=== PATIENT | female | born 1980 | race Caucasian/White ===

== ENCOUNTER 2016-08-05 09:40 | Inpatient (IN) | payer OTHER ==
[~2016-08-05] VITALS: Ht 154.9 cm; Wt 79.5 kg
[2016-08-05] MEDS: LACTATED RINGER'S 1,000 ML IV SCH ×3 (11:00→17:00)
[2016-08-05 12:11] LABS: ADD SCAN DIFF NO
[2016-08-05 12:15] LABS: BASOPHILS % 0.3 % (0.0-2.0); EOSINOPHILS # 0.2 10^3/ul (0.0-0.5); EOSINOPHILS % 1.8 % (0.0-7.0); HEMATOCRIT 33.6 % (37.0-47.0); HEMOGLOBIN 11.7 g/dl (12.0-16.0); LYMPHOCYTES # 2.1 10^3/ul (0.8-2.9); LYMPHOCYTES % 18.5 % (15.0-51.0); MEAN CORPUSCULAR HEMOGLOBIN 29.5 pg (29.0-33.0); MEAN CORPUSCULAR HGB CONC 34.8 g/dl (32.0-37.0); MEAN CORPUSCULAR VOLUME 84.6 fl (82.0-101.0); MEAN PLATELET VOLUME 12.7 fl (7.4-10.4); MONOCYTE # 0.8 10^3/ul (0.3-0.9); MONOCYTES % 7.4 % (0.0-11.0); NEUTROPHIL # 8.1 10^3/ul (1.6-7.5); NEUTROPHILS % 71.6 % (39.0-77.0); PLATELET COUNT 172 10^3/UL (140-415); RED BLOOD COUNT 3.97 10^6/ul (4.20-5.40); RED CELL DISTRIBUTION WIDTH 13.2 % (11.5-14.5); WHITE BLOOD COUNT 11.3 10^3/ul (4.8-10.8)
[2016-08-05 12:21] LABS: INR 1.07; PARTIAL THROMBOPLASTIN TIME 26.4 Sec (25.0-35.0); PROTIME 13.9 Sec (12.2-14.2); PT RATIO 1.1
[2016-08-05] MEDS ORDERED: CEFAZOLIN 2 GM/50 ML (PMX) 50 ML IV SCH (12:30)
[2016-08-05] MEDS ORDERED: CARBOPROST 250 MCG INJ IM PRN (12:30)
[2016-08-05] MEDS ORDERED: OXYTOCIN 30 UNITS/LR 500 ML IV PRN (12:30)
[2016-08-05] MEDS ORDERED: MISOPROSTOL 200 MCG TAB PR PRN (12:30)
[2016-08-05] MEDS ORDERED: METHYLERGONOVINE 0.2 MG INJ IM PRN (12:30)
[2016-08-05] MEDS ORDERED: OXYTOCIN 30 UNITS/LR 500 ML IV SCH (12:30)
[2016-08-05] MEDS ORDERED: URSO300C21 PO (12:37)
[2016-08-05 12:38] VITALS: Ht 154.9 cm; Wt 79.5 kg
[2016-08-05] MEDS ORDERED: PRENAT PO (12:38)
[2016-08-05 12:39] VITALS: BP 109/62; PULSE 80; RESP 18
--- NOTE | 2016-08-05 13:33 | RADRPT ---
PROCEDURE: OB ultrasound for biophysical profile CLINICAL INDICATION: Contractions TECHNIQUE: Multiple sonographic images of the pelvis were obtained. Transabdominal view of the gr avid uterus are available for review. The images were reviewed on a PACS workstation. COMPARISON: None FINDINGS: breathing movement = 2/2 tone = 2/2 motion = 2/2 MARCIA = 2/2 MARCIA = 9.9 cm Single live intrauterine with cardiac activity. heart rate equals 126 beats p er minute. Presentation is cephalic. The placenta is posterior. IMPRESSION: 1. Single viable intrauterine gestation. 2. Biophysical profile = 8/8. 3. MARCIA = 9.9 cm. RPTAT: KK .Leonidas Leyva MD, Date Time Electronically viewed and signed by .Leonidas Leyva MD, MD on 08/05/2016 13:32 .B/
--- NOTE | 2016-08-05 13:35 | RADRPT ---
PROCEDURE: US OB - Limited weight. CLINICAL INDICATION: Contractions TECHNIQUE: Multiple sonographic images of the pelvis were obtained. Transabdominal imaging only w as performed. The images were reviewed on a PACS workstation. COMPARISON: No prior studies are available for comparison. FINDINGS: There is a single viable intrauterine gestation. Cardiac activity is present with 131 beats per min [place]. There is a cephalic presentation. Measurements were made in order to determine age. The results are as follows: BPD = 8.37 cm HC = 32.74 cm AC = 31.18 cm FL = 6.88 .cm Estimated gestational age of approximately 35 weeks 2 days +/ - 2 weeks 3 days The estimated date of delivery is 09/07/2016 by ultrasound evaluation. The EFW = 2627 g +/- 394 g (30%). The placenta is posterior. IMPRESSION: 1. Single viable intrauterine gestation of approximately 35 weeks 2 days with estimated date of [place] b[place] of 09/07/2016 by ultrasound evaluation.. 2. The estimated weight is 2627 g (30%) . RPTAT: KK .Leonidas Leyva MD, MD Date Time Electronically viewed and signed by .Leonidas Leyva MD, MD on 08/05/2016 13:34 .B/
[2016-08-05 13:47] LABS: ADD UMIC NO; UR ASCORBIC ACID NEGATIVE (NEGATIVE); UR BILIRUBIN (Dip) NEGATIVE (NEGATIVE); UR BLOOD (Dip) NEGATIVE (NEGATIVE); UR CLARITY CLEAR (CLEAR); UR COLOR STRAW (YELLOW); UR GLUCOSE (Dip) NEGATIVE (NEGATIVE); UR KETONES (Dip) TRACE mg/dL (NEGATIVE); UR LEUKOCYTE ESTERASE (Dip) NEGATIVE Leu/ul (NEGATIVE); UR NITRITE (Dip) NEGATIVE (NEGATIVE); UR SPECIFIC GRAVITY (Dip) 1.005 (1.003-1.030); UR TOTAL PROTEIN (Dip) NEGATIVE (NEGATIVE); UR UROBILINOGEN (Dip) NEGATIVE (NEGATIVE)
[2016-08-05 14:02] LABS: ALBUMIN 3.7 g/dl (3.3-4.9); ALBUMIN/GLOBULIN RATIO 1.32; BILIRUBIN,INDIRECT 0.4 mg/dl (0-1.1); BILIRUBIN,TOTAL 0.4 mg/dl (0.2-1.3); CALCIUM 8.9 mg/dl (8.4-10.2); CREATININE 0.53 mg/dl (0.44-1.00); POTASSIUM 3.8 mmol/L (3.5-5.1); TOTAL PROTEIN 6.5 g/dl (6.1-8.1)
[2016-08-05] MEDS ORDERED: TERBUTALINE 1 ML ONE (14:28)
[2016-08-05] MEDS ORDERED: TERBUTALINE 1 MG/ML INJ SC ONE ×2 (15:00→16:30)
[2016-08-05] MEDS ORDERED: ACETAMINOPHEN 1000MG/100ML IV 100 ML IVPB ONE (18:30)
--- NOTE | 2016-08-05 22:10 | PN ---
Triage Information Date/Time Aug 05, 2016 at 09:40 Weeks of Gestation Patient is 4 para 2 at 36 weeks of gestation with history of prior C- section 2 Patient has been treated for cholestasis of on Actigall She was sent from [facility] for possible and bilateral tubal ligation today Patient reports contractions, positive movement, no vaginal bleeding, no leaking fluid : 4 Para: 2 Diabetes: none Hypertention: none Additional information Patient with cholestasis of currently on Actigall Objective Vital Signs Date Time Temp Pulse Resp B/P Pulse Ox O2 Delivery O2 Flow Rate FiO2 08/05/16 12:39 98.0 80 18 109/62 98 Room Air Heart Rate Comments Reactive Contractions: 6-10 Minutes Apart Exam Cervix closed per nurse Results/Medications Result Diagram: 08/05/16 1100 08/05/16 1320 Results 24 hrs Laboratory Tests Test 08/05/16 11:00 08/05/16 13:10 08/05/16 13:20 08/05/16 18:41 White Blood Count 11.3 H Red Blood Count 3.97 L Hemoglobin 11.7 L Hematocrit 33.6 L Mean Corpuscular Volume 84.6 Mean Corpuscular Hemoglobin 29.5 Mean Corpuscular Hemoglobin Concent 34.8 Red Cell Distribution Width 13.2 Platelet Count 172 Mean Platelet Volume 12.7 H Neutrophils % 71.6 Lymphocytes % 18.5 Monocytes % 7.4 Eosinophils % 1.8 Basophils % 0.3 Nucleated Red Blood Cells % 0.0 Neutrophils # 8.1 H Lymphocytes # 2.1 Monocytes # 0.8 Eosinophils # 0.2 Basophils # 0.0 Nucleated Red Blood Cells # 0.0 Prothrombin Time 13.9 Prothrombin Time Ratio 1.1 INR International Normalized Ratio 1.07 Activated Partial Thromboplast Time 26.4 Glucose Level 72 69 L Rapid Plasma Reagin NONREACTIVE Hepatitis B Surface Antigen NEGATIVE Urine Color STRAW Urine Clarity CLEAR Urine pH 7.0 Urine Specific [place] 1.005 Urine Ketones TRACE A Urine Nitrite NEGATIVE Urine Bilirubin NEGATIVE Urine Urobilinogen NEGATIVE Urine Leukocyte Esterase NEGATIVE Urine Hemoglobin NEGATIVE Urine Glucose NEGATIVE Urine Total Protein NEGATIVE Sodium Level 136 Potassium Level 3.8 Chloride Level 107 Carbon Dioxide Level 23 Anion Gap 10 Blood Urea Nitrogen 4 L Creatinine 0.53 Calcium Level 8.9 Total Bilirubin 0.4 Direct Bilirubin 0.00 Indirect Bilirubin 0.4 Aspartate Amino Transf (AST/SGOT) 24 Alanine Aminotransferase (ALT/SGPT) 24 Alkaline Phosphatase 138 H Total Protein 6.5 Albumin 3.7 Globulin 2.80 Albumin/Globulin Ratio 1.32 Bedside Glucose 78 Medications Current Medications Cefazolin Sodium/ Dextrose 50 ml @ 100 mls/hr ONCE IV ; Start 08/05/16 at 12:30 Oxytocin/Lactated Ringer's 500 ml @ 125 mls/hr ONCE IV ; Start 08/05/16 at 12: 30 Oxytocin/Lactated Ringer's 500 ml @ 0 mls/hr ONCE PRN IV For Hemorrhage Management; Start 08/05/16 at 12:30 Methylergonovine Maleate (Methergine) 0.2 mg ONCE PRN IM VAGINAL BLEEDING; Start 08/05/16 at 12:30 Carboprost Tromethamine (Hemabate) 250 mcg ONCE PRN IM VAGINAL BLEEDING; Start 08/05/16 at 12:30 Misoprostol 1000 mcg 1,000 mcg ONCE PRN OK VAGINAL BLEEDING; Start 08/05/16 at 12:30 Lactated Ringer's (Lr) 1,000 ml @ 125 mls/hr Q8H IV Last administered on t 17:00; Admin Dose 125 MLS/HR; Start 08/05/16 at 12:56 Imaging Results PROCEDURE: OB ultrasound for biophysical profile CLINICAL INDICATION: Contractions TECHNIQUE: Multiple sonographic images of the pelvis were obtained. Transabdominal view of the gravid uterus are available for review. The images were reviewed on a PACS workstation. COMPARISON: None FINDINGS: breathing movement = 2/2 tone = 2/2 motion = 2/2 MARCIA = 2/2 MARCIA = 9.9 cm Single live intrauterine with cardiac activity. heart rate equals 126 beats per minute. Presentation is cephalic. The placenta is posterior. IMPRESSION: 1. Single viable intrauterine gestation. 2. Biophysical profile = 8/8. 3. MARCIA = 9.9 cm. RPTAT: KK .Leonidas Leyva MD, MD Date Time Electronically viewed and signed by .Leonidas Leyva MD, MD on 2016 13:32 .B/ CC: PAOLA OSWALD MD PROCEDURE: US OB - Limited weight. CLINICAL INDICATION: Contractions TECHNIQUE: Multiple sonographic images of the pelvis were obtained. Transabdominal imaging only was performed. The images were reviewed on a PACS workstation. COMPARISON: No prior studies are available for comparison. FINDINGS: There is a single viable intrauterine gestation. Cardiac activity is present with 131 beats per minute. There is a cephalic presentation. Measurements were made in order to determine age. The results are as follows: BPD = 8.37 cm HC = 32.74 cm AC = 31.18 cm FL = 6.88 .cm Estimated gestational age of approximately 35 weeks 2 days +/ - 2 weeks 3 days The estimated date of delivery is 09/07/2016 by ultrasound evaluation. The EFW = 2627 g +/- 394 g (30%). The placenta is posterior. IMPRESSION: 1. Single viable intrauterine gestation of approximately 35 weeks 2 days with estimated date of delivery of 09/07/2016 by ultrasound evaluation.. 2. The estimated weight is 2627 g (30%) . RPTAT: KK .Leonidas Leyva MD, MD Date Time Electronically viewed and signed by .Leonidas Leyva MD, MD on 2016 13:34 .B/ CC: PAOLA OSWALD MD Assessment/Plan Patient at 36 weeks of gestation with contractions and cholestasis of After IV fluids and terbutaline patient's contractions have subsided We will admit her for observation overnight Patient was counseled if the contractions return and there are every 3-5 minutes we will proceed with a repeat and BTL If any evidence of non-reassuring heart tracing we will proceed with repeat c/section and BTL Patient was further counseled given the fact that she is only 36 weeks of gestation there is some benefit for waiting until she reaches full term SANTIAGO PEREIRA MD Aug 05, 2016 22:06
[2016-08-06] MEDS: LACTATED RINGER'S 1,000 ML IV SCH (03:36)
[2016-08-06] MEDS ORDERED: ACETAMINOPHEN 1000MG/100ML IV 100 ML IVPB ONE (07:00)
[2016-08-06] MEDS ORDERED: LACTATED RINGER'S 1,000 ML IV ONE (09:42)
[2016-08-06] MEDS ORDERED: CITRIC ACID/SODIUM CITRATE 15 ML CUP PO ONE (10:00)
[2016-08-06] MEDS ORDERED: FAMOTIDINE 20 MG INJ IV ONE (10:00)
[2016-08-06] MEDS ORDERED: METOCLOPRAMIDE 10 MG INJ IV ONE (10:00)
[2016-08-06] MEDS ORDERED: FENTAnyl 50 MCG/ML VIAL ONE (10:36)
[2016-08-06] MEDS ORDERED: morphine SULFATE/PF (10 MG/10 ML) INJ ONE (10:36)
[2016-08-06] MEDS ORDERED: EPHEDrine SULFATE 50 MG/5 ML SYG ONE (10:56)
[2016-08-06] MEDS ORDERED: PHENYLephrine (100 MCG/ML) 5ML SYG ONE (10:56)
--- NOTE | 2016-08-06 10:58 | HP ---
Date/Time of Note Date/Time of Note DATE: 08/06/16 TIME: 10:45 OB - History Hx of Present Free Text/Dictation This is a 36 years old female admitted to [facility] with history of 2 previous planner chief complaint of uterine contraction, patient kept under close observation to rule out labor received hydration and terbutaline however contractions even not to close together but painful scale of 7 according to her, she has a history of suspected cholestasis of which for that she has been taking ursodiol 300 mg 3 times a day, however her most recent bile acids report except one of the values were within normal Estimated Due Date: Sep 02, 2016 : 4 Para: 2 Spontaneous : 1 Care: Good Care Ultrasounds: Normal mid trimester US Obstetrical Complications: Other (Suspected cholestasis of being treated with ursodiol 300 mg 3 times daily) Medical Complications: Other (Cholestasis of ) Past Family/Social History * Past Medical, Surgical, Family and Obstetric Histories reviewed from chart. Rubella: immune RPR/VDRL: Negative GBS Status: Unknown HBsAG: Negative OB Admission Exam Vital Signs Vital Signs Vital Signs Date Time Temp Pulse Resp B/P Pulse Ox O2 Delivery O2 Flow Rate FiO2 08/05/16 12:39 98.0 80 18 109/62 98 Room Air Physical Exam HEENT: WNL Lungs: Clear, Equal Abdomen: WNL Extremities: Normal Reflexes: Normal Station: -2 Membranes: Intact Heart Rate: 130's Accelerations: Accelerations Present Decelerations: No Decelerations Varibility: Moderate Contractions on Admission: >10 Minutes Apart Intensity: Firm Last 72 hourBlood Glucose Bedside Glucose - 72 Hours Test 08/05/16 18:41 Bedside Glucose 78mg/dL (70-220) Last 72 hours Lab Results CBC & BMP 08/05/16 11:00 08/05/16 13:20 Liver Function Test 08/05/16 13:20 Alanine Aminotransferase (ALT/SGPT) 24 Albumin 3.7 Alkaline Phosphatase 138 H Aspartate Amino Transf (AST/SGOT) 24 Direct Bilirubin 0.00 Total Protein 6.5 PAOLA OSWALD MD Aug 06, 2016 10:55
[2016-08-06] MEDS ORDERED: FENTAnyl 50 MCG/ML VIAL IV PRN (11:00)
[2016-08-06] MEDS ORDERED: MEPERIDINE 25 MG INJ IV PRN (11:00)
[2016-08-06] MEDS ORDERED: PROCHLORPERAZINE 10 MG INJ IV PRN ×2 (11:00)
[2016-08-06] MEDS ORDERED: NALOXONE (0.4 MG/ML) INJ IV PRN (11:00)
[2016-08-06] MEDS ORDERED: ZOLPIDEM 5 MG TAB PO PRN (11:00)
[2016-08-06] MEDS ORDERED: ONDANSETRON 4 MG INJ IV PRN ×2 (11:00)
[2016-08-06] MEDS ORDERED: HYDROmorphONE 1 MG/ML SYG IV PRN ×2 (11:00)
[2016-08-06] MEDS ORDERED: KETOROLAC 30 MG INJ IV PRN ×2 (11:00)
[2016-08-06] MEDS ORDERED: DIPHENHYDRAMINE 50 MG INJ IV PRN ×2 (11:00)
[2016-08-06] MEDS ORDERED: HYDROmorphONE (0.2 MG/ML) 10ML SYG IV PRN (11:00)
[2016-08-06] MEDS ORDERED: ONDANSETRON 4 MG INJ ONE (11:10)
[2016-08-06] MEDS ORDERED: OXYTOCIN 30 UNITS/LR 500 ML IV ONE (11:32)
--- NOTE | 2016-08-06 12:25 | OPR ---
DATE OF OPERATION: 08/06/2016 PREOPERATIVE DIAGNOSES: 1. Intrauterine at 36 weeks and 1 day, history of 2 previous sections, complicated with cholestasis of , in labor. 2. Request for voluntary sterilization, bilateral tubal ligation at the time of section. POSTOPERATIVE DIAGNOSES: 1. Intrauterine at 36 weeks and 1 day, history of 2 previous sections, complicated with cholestasis of , in labor. 2. Request for voluntary sterilization, bilateral tubal ligation at the time of section. PROCEDURE PERFORMED: 1. Repeat transverse low cervical section for the 3rd time. 2. Bilateral tubal ligation. SURGEON: Paola Guerrero MD [facility] DIRECTOR: Leda Shahid MD ANESTHESIA: Spinal. ANESTHESIOLOGIST: Korin Leroy MD FINDINGS: Live baby boy, 8 and 8. Baby weighed 2735 grams. DETAILS OF THE PROCEDURE: Under satisfactory spinal anesthesia, the patient was prepped and draped and placed in supine position, tilted to the left. Pfannenstiel incision was made, incision carried through the subcutaneous tissue. Bleeders brought under control with electrocautery. Fascia incis ed to the length of the incision. Rectus muscle divided in midline. Peritoneum exposed, entered th rough a transverse incision. Exploration of abdomen: Gravid uterus, normal-appearing tubes and ova muna, extremely thinned out lower segment of the uterus to the thickness of 1 mm. Bladder flap was developed. Transverse incision was made in the lower segment of the uterus. Amniotic sac ruptured. Clear amniotic fluid noted. Live baby boy was delivered from unengaged vertex. Nasal oropharynge al suction was performed. Baby handed to the team for immediate attention. The patient re ceived 20 units of Pitocin. Placenta delivered manually intact. Uterine cavity cleaned with wet sp onge and drainage established. Placenta sent to pathology. Uterus closed in 2 layers using Monocry l #1 in continuous fashion. Bilateral tubal ligation performed by identifying the ampulla and the fimbria portion of the right f allopian tube, grasped by a Tiro. Suture material used #0 plain catgut was reinforced with the s kathe suture material. The ampulla and fimbria were resected and the cut end of the tube was cauterize d and the specimen submitted for pathology. The same procedure performed for the opposite side. Pe ritoneal cavity irrigated with warm saline. Sponge, needle and instrument reported to be correct. Abdominal peritoneum closed with 2-0 chromic catgut continuously. Rectus muscle approximated with a few interrupted 2-0 chromic catgut. Fascia closed with #1 PDS in a continuous fashion. Subcutaneo us tissue approximated with 2-0 chromic catgut and the skin closed with gwendolyn. Estimated blood lo ss 600 mL. Urine bag contained 200 mL of clear urine. The patient tolerated the procedure well, tr ansferred to recovery room in a good condition. Dictated By: PAOLA PONCE/BARRON Conf#: [id number] DID#: [id number]
[2016-08-06 15:40] VITALS: BP 117/70; PULSE 85; RESP 17
[2016-08-06 15:55] VITALS: BP 127/59; PULSE 92; RESP 19
[2016-08-06] MEDS ORDERED: CARBOPROST 250 MCG INJ IM PRN (16:00)
[2016-08-06] MEDS ORDERED: CEFAZOLIN 1 GM/50 ML (PMX) 50 ML IVPB SCH (16:00)
[2016-08-06] MEDS ORDERED: MISOPROSTOL 200 MCG TAB PR PRN (16:00)
[2016-08-06] MEDS ORDERED: LANOLIN 7 GM TUBE TOP PRN (16:00)
[2016-08-06] MEDS ORDERED: OXYTOCIN 30 UNITS/LR 500 ML IV PRN (16:00)
[2016-08-06] MEDS ORDERED: METHYLERGONOVINE 0.2 MG INJ IM PRN (16:00)
[2016-08-06] MEDS ORDERED: OXYCODONE/ACETAMINOPHEN (5/325) TAB PO PRN (16:00)
[2016-08-06] MEDS ORDERED: ACETAMINOPHEN/CODEINE #3 TAB PO PRN ×2 (16:00)
[2016-08-06 16:25] VITALS: BP 116/62; PULSE 76; RESP 20
[2016-08-06] MEDS: OXYTOCIN 30 UNITS/LR 500 ML IV SCH ×2 (16:45→21:21)
[2016-08-06 16:55] VITALS: BP 127/67; PULSE 78; RESP 20
[2016-08-06 17:55] VITALS: BP 126/62; PULSE 78; RESP 18
[2016-08-06 20:00] VITALS: BP 120/67; PULSE 74; RESP 20
[2016-08-06] MEDS: SENNA/DOCUSATE NA (8.6MG/50MG) TAB PO SCH (21:23)
[2016-08-07] MEDS: OXYTOCIN 30 UNITS/LR 500 ML IV SCH ×7 (02:05→23:52)
[2016-08-07 04:00] VITALS: BP 102/58; PULSE 81; RESP 20
[2016-08-07 07:11] LABS: ADD SCAN DIFF NO
[2016-08-07 07:17] LABS: BASOPHILS % 0.3 % (0.0-2.0); EOSINOPHILS # 0.1 10^3/ul (0.0-0.5); EOSINOPHILS % 0.8 % (0.0-7.0); HEMATOCRIT 29.8 % (37.0-47.0); HEMOGLOBIN 10.2 g/dl (12.0-16.0); LYMPHOCYTES % 13.9 % (15.0-51.0); MEAN CORPUSCULAR HEMOGLOBIN 29.3 pg (29.0-33.0); MEAN CORPUSCULAR HGB CONC 34.2 g/dl (32.0-37.0); MEAN CORPUSCULAR VOLUME 85.6 fl (82.0-101.0); MEAN PLATELET VOLUME 12.5 fl (7.4-10.4); MONOCYTE # 1.3 10^3/ul (0.3-0.9); NEUTROPHIL # 10.9 10^3/ul (1.6-7.5); NEUTROPHILS % 75.5 % (39.0-77.0); PLATELET COUNT 155 10^3/UL (140-415); RED BLOOD COUNT 3.48 10^6/ul (4.20-5.40); RED CELL DISTRIBUTION WIDTH 13.4 % (11.5-14.5); WHITE BLOOD COUNT 14.4 10^3/ul (4.8-10.8)
[2016-08-07 08:00] VITALS: BP 104/68; PULSE 73; RESP 18
[2016-08-07] MEDS: SENNA/DOCUSATE NA (8.6MG/50MG) TAB PO SCH ×2 (08:42→20:53)
[2016-08-07] MEDS: IBUPROFEN 600 MG TAB PO SCH ×2 (11:15→17:58)
--- NOTE | 2016-08-07 15:40 | PN ---
Date/Time of Note Date/Time of Note DATE: 08/07/16 TIME: 15:39 OB Subjective Subjective Subjective Post day 1 Afebrile vital signs abdomen soft incision dry bowel sounds present lochia normal extremities normal ambulation encouraged PAOLA OSWALD MD Aug 07, 2016 15:40
[2016-08-07 17:00] VITALS: BP 112/65; PULSE 86; RESP 18
[2016-08-07 19:50] VITALS: BP 117/74; PULSE 78; RESP 18
[2016-08-08] MEDS: OXYCODONE/ACETAMINOPHEN (5/325) TAB PO PRN ×4 (01:18→19:59)
[2016-08-08 03:41] VITALS: BP 99/71; PULSE 80; RESP 18
[2016-08-08] MEDS: OXYTOCIN 30 UNITS/LR 500 ML IV SCH ×3 (03:50→23:24)
[2016-08-08] MEDS: IBUPROFEN 600 MG TAB PO SCH ×4 (05:41→18:08)
[2016-08-08] MEDS: SENNA/DOCUSATE NA (8.6MG/50MG) TAB PO SCH ×2 (08:27→19:58)
[2016-08-08 09:01] VITALS: BP 104/63; PULSE 72; RESP 14
--- NOTE | 2016-08-08 11:57 | PN ---
Date/Time of Note Date/Time of Note DATE: 08/08/16 TIME: 11:56 OB Subjective Subjective Subjective Post day 2 Afebrile vital signs stable abdomen soft incision good bowel no bowel movement extremities normal enema recommended PAOLA OSWALD MD Aug 08, 2016 11:57
[2016-08-08] MEDS ORDERED: NA PHOSPHATE/BIPHOS 133 ML ENEMA PR ONE (12:00)
[2016-08-08 17:00] VITALS: BP 115/74; PULSE 85; RESP 16
[2016-08-08 17:07] LABS: CHOLIC ACID <0.5 umol/L (< OR = 1.8); DEOXYCHOLIC ACID 0.5 umol/L (< OR = 2.4); TOTAL BILE ACIDS 1.5 umol/L (< OR = 6.8)
[2016-08-08 19:59] VITALS: BP 110/68; PULSE 78; RESP 19
[2016-08-09] MEDS: IBUPROFEN 600 MG TAB PO SCH ×3 (00:15→11:39)
[2016-08-09] MEDS: OXYTOCIN 30 UNITS/LR 500 ML IV SCH ×2 (02:30→06:57)
[2016-08-09 04:07] VITALS: BP 109/68; PULSE 69; RESP 19
[2016-08-09] MEDS: OXYCODONE/ACETAMINOPHEN (5/325) TAB PO PRN (04:07)
[2016-08-09 08:00] VITALS: BP 107/60; PULSE 7; RESP 20
[2016-08-09] MEDS: SENNA/DOCUSATE NA (8.6MG/50MG) TAB PO SCH (08:50)
[2016-08-09] MEDS ORDERED: DIPHTH/TET/ACEL PERTUSS (ADULT) 0.5 ML VIAL IM* ONE (09:00)
--- NOTE | 2016-08-09 12:40 | PD.PPDC ---
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
--- NOTE | 2016-08-09 12:43 | DS ---
Date/Time of Note Date/Time of Note DATE: 08/09/16 TIME: 12:41 Discharge Summary Admission/Discharge Info Admit Date/Time Aug 05, 2016 at 09:40 Discharge Date/Time August 09, 2016 at 1235 Discharge Diagnosis Post repeat date 3 Patient Condition: Good Procedures Repeat Hx of Present Illness 36 weeks 2 days history of 2 previous suspected cholestasis of mild [facility] Hospital Course Satisfactory uneventful Home Meds Reported Medications Multivit/Min/Fol Ac/Iron/Pren* ( S*) 1 Tab Tab, 1 TAB PO DAILY, TAB 08/05/16 Ursodiol* (Actigall*) 300 Mg Cap, 300 MG PO TID, #90 CAP 08/05/16 Follow-up Plan Appointment clinic 4 days to discontinue gwendolyn post instructions for home wound care given Primary Care Provider Not On Staff Doctor Time spent on discharge: < 30 minutes PAOLA OSWALD MD Aug 09, 2016 12:43
== END 2016-08-09 14:50 | disposition home or self-care (01) | DRG 765 ==
LOC: L-D 09:40 → PP1 08-06 15:38
PROVIDERS: ADMIT Obstetrics & Gynecology; ATTEND Obstetrics & Gynecology
PROC: 0UB70ZZ Excision of Bilateral Fallopian Tubes, Open Approach (ICD-10-PCS; 2016-08-06)
PROC: 10D00Z1 Extraction of Products of Conception, Low, Open Approach (ICD-10-PCS; principal; 2016-08-06 10:15)
DX: O34.211 Maternal care for low transverse scar from previous cesarean delivery (principal); O26.62 Liver and biliary tract disorders in childbirth; K83.1 Obstruction of bile duct; Z37.0 Single live birth; Z3A.36 36 weeks gestation of pregnancy; Z30.2 Encounter for sterilization
CPT/HCPCS: 76815; 76818; 80053; 81003; 82947; 82962; 83789; 85025; 85610; 85730; 86592; 86850; 86900; 86901; 87340; 88302; 90715; 99464; J0131; J0690; J1885; J2274; J2370; J2405; J2590; J3010; J3105; J7120